=== PATIENT | male | born 1985 | race Caucasian/White ===

== ENCOUNTER 2018-02-21 22:23 | Emergency (ER) | payer MEDICAID, SELFPAY ==
[2018-02-21 22:27] VITALS: BP 158/101; PULSE 104; RESP 16; TEMP 36.6; O2SAT 99
--- NOTE | 2018-02-21 22:59 | ED.GENADUL ---
Disposition Clinical Impression: Laceration of finger of right hand Disposition: HOME Condition: Good Instructions: Finger Laceration (ED) Additional Instructions: Watch for signs of infection. Do not soak your injury. Do keep it clean and dry. Sutures out in 7 days. Return here for suture removal or for sign of infection. Referrals: [facility] [Provider Group] Medical Decision Making - Medical Decision Making Fairly superficial flap laceration that would probably heal fine on its own. 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 Verbal consent was obtained. Digital block applied with 1% lidocaine without epi. Wound irrigated out. 2 5-0 nylon sutures placed. Patient tolerated procedure well. Patient given tetanus. Given instructions on wound care. Sutures out in 7 days. Watch for signs of infection. History of Present Illness - General Chief complaint: Laceration Stated complaint: UNKNOWN Time Seen by Provider: 02/21/18 22:59 Source: patient Mode of arrival: ambulatory Limitations: no limitations - History of Present Illness Initial comments: Patient presents to the ED with a right index finger flap laceration. Injury occurred when he was taking garbage out. Went to throw the bag into the dumpster and felt something cutting on the finger. He does not know what caused the injury. He is unaware of his tetanus status. Bleeding is controlled at this point. Injury is on the ulnar aspect of the index finger on the right. Denies other injury. - Related Data Divalproex Sodium [Depakote ER] 1,000 mg PO DAILY 12/19/17 Fluvoxamine Maleate [Fluvoxamine Maleate ER] 300 mg PO HS 12/19/17 Allergies Allergy/AdvReac Type Severity Reaction Status Date / Time No Known Allergies Allergy Unverified 12/19/17 06:28 Review of Systems Musculoskeletal: denies: arthralgia, myalgia Skin: other (Laceration) Neurological: denies: weakness, numbness, paresthesias Past Medical History - Past Medical History hepatitis C Surgical history: non-contributory Family history: no significant family history - Social History Smoking status: current everyday smoker Drug use: none General Exam - General Limitations: no limitations General appearance: alert, in no apparent distress - Head Head exam: Present: atraumatic, normocephalic - Eye Eye exam: Present: normal apperance - Extremities Exam Extremities exam: Present: normal inspection, full ROM. Absent: tenderness - Neurological Exam Neurological exam: Present: alert, oriented X3, CN II-XII intact. Absent: motor sensory deficit - Skin Skin exam: Present: warm, dry, other (Superficial flap laceration right index finger just above the PIP joint. Capillary refill and sensation intact distally. No evidence of tendon injury. No bone visualized) Course Vital Signs - 24 hr 02/21/18 22:27 Temperature 97.9 F Pulse 104 H Respiratory 16 Rate Blood Pressure 158/101 Pulse Oximetry 99 Procedures - Laceration Repair Consent Obtained: Verbal consent Time Out Performed: Yes Laceration Location: right index finger Laceration Length (cm): 0.5 Laceration Depth: Superficial Bleeding Type/Amount: Minimal Complexity: Simple Anesthetic: Digital Block, Lidocaine 1% Material: Nylon Suture Size: 5-0 Suture Number: 2
== END 2018-02-21 23:29 | disposition home or self-care (01) ==
PROVIDERS: Emergency Provider Emergency Medicine; PCP General Practice
DX: S61.210A Laceration without foreign body of right index finger without damage to nail, initial encounter (principal); W26.8XXA Contact with other sharp object(s), not elsewhere classified, initial encounter; B18.2 Chronic viral hepatitis C; I10 Essential (primary) hypertension
CPT/HCPCS: 12001; 90471

== ENCOUNTER 2019-04-22 06:58 | Day surgery (SDC) | payer OTHER, SELFPAY ==
[2019-04-22 07:20] VITALS: BP 131/88; PULSE 89; RESP 16; TEMP 36.7; O2SAT 97
--- NOTE | 2019-04-22 09:32 | SOFT_PTH ---
PATIENT: USMAN LYLES LOC: [facility] U#:[id number] AGE/SX: 33/M ROOM: RE04/22/[address]: Radha Mcclure : 1985 BED: DIS: 04/22/2019 SPEC #: [id number] RECD: 04/22/19 12:28 STATUS: DIA REQ #: [id number] CASANDRA: 04/22/19 09:[address]: Radha Mcclure DEPT: Surgical Specimen RECD BY: Kayli Kwong ENTERED: 04/22/19 12:28 SP TYPE: SOFT OTHR DR: Yang Hope Tissues: 1 - SOFT TISSUE MISC (INC. LIPOMA) Procedures: GROSS AND MICRO LEVEL 3 Comments: [id number]
--- NOTE | 2019-04-22 09:50 | W.PM.DSUDISC ---
Discharge Plan Disposition Patient Disposition: OTHER Condition: Good Discharge Details Attending Provider: Radha Mcclure Primary Care Provider: Yang Hope Home Meds and New Rx's Prescriptions: New ibuprofen 600 mg tablet 600 mg PO Q6H PRN (Reason: pain) Qty: 60 RF: 0 Continued fluoxetine 20 mg capsule 40 mg PO DAILY RF: 0 lamotrigine [Lamictal] 25 mg tablet 150 mg PO DAILY RF: 0 sennosides [senna] 8.6 mg tablet 17.2 mg PO BID RF: 0 docusate sodium 100 mg capsule 100 mg PO BID RF: 0 Metamucil (with sugar) 3.4 gram powder in packet 1 tbs PO DAILY RF: 0 buprenorphine HCl 2 mg tablet, sublingual 14 mg SL ONCE RF: 0 Discharge Instructions Additional Instructions: ok to shower in 24 hrs wash w/ soap and water twice a day ice and ibuprofen for pain. every 6hrs as needed.. take w/ food. no strenuous activity x2 wks keep cover keep clean remove stitches in 10-14 days. can be done at retirement or our office Activity:: see above Remove Dressings/Wound Care:: 24 hours Shower/Bathe:: 24 hours Activity:: see above Equipment/Supplies:: No Equipment Needed Diet:: As Tolerated Discharge Orders Discharge Orders: Discharge Order (Routine); Ordered 04/22/19 Ordered By: Radha Mcclure DS: Diagnosis Discharge Diagnosis (1) Sebaceous cyst: Status: Acute
--- NOTE | 2019-04-22 09:56 | W.PM.OP ---
Date of service: 04/22/19 Operative Note Operative Note DATE OF PROCEDURE: 04/22/19 PRE-OP DIAGNOSIS: cyst posterior neck POST-OP DIAGNOSIS: same PROCEDURE: excision SURGEON: Radha Mcclure ANESTHESIA: local ESTIMATED BLOOD LOSS: 5 PATHOLOGY: other COMPLICATIONS: None Patient was transported to: same day Patient's condition: stable Procedure Description: dictated
--- NOTE | 2019-04-22 13:39 | ROE_ITS ---
DATE OF PROCEDURE: April 22, 2019 PREOPERATIVE DIAGNOSIS: Posterior right neck mass. 3cmx 3cm POSTOPERATIVE DIAGNOSIS: Same. PROCEDURE: Excision of benign neck mass. SURGEON: Radha Mcclure D.O. ANESTHESIA: Local. ESTIMATED BLOOD LOSS: < 5 cc's CONDITION: The patient tolerated the procedure well without complication. INDICATIONS: Mr. Galindo is a 33-year-old male who has a posterior neck mass and is here today for removal. Informed consent was obtained, explaining risks and benefits of the procedure including but not limited to bleeding, infection, complications of the local anesthesia, recurrence and other unforetold complications. PROCEDURE: The patient is marked in same-day surgery; he was brought to the procedure room and placed in the posterior position with all bony surfaces padded. The patient is prepped and draped in the usual sterile fashion using a Betadine scrub solution. A time-out is performed. 20 cc's of 0.25% Marcaine with epinephrine is used for local anesthetization. A #15 blade is used to make a linear transverse incision 2cm, over the mass. It does appear to be a sebaceous cyst; it is dissected out in its entirety sharply. It is then irrigated and pressure is held. All of the capsule is removed. There is no bleeding noted. Deep tissue is approximated with #4-0 Monocryl and the skin is approximated with #3-0 nylon. Compression dressing is applied. The patient tolerated the procedure well without complication and transferred to the recovery room in stable condition. He is given discharge instructions. He doesn't need antibiotics. Ibuprofen and ice for pain. He can either follow-up in the office or the [facility] can remove the stitches in ten days. Thank you for allowing me to participate in the care of this patient. cc: Yang Hope M.D.
== END 2019-04-22 10:20 | disposition home or self-care (01) ==
PROVIDERS: PCP General Practice; Visit Provider Surgery
PROC: (CPT 11422; principal; 2019-04-22 08:15)
DX: L72.8 Other follicular cysts of the skin and subcutaneous tissue (principal)
CPT/HCPCS: 11422; 12041; 88304